=== PATIENT | male | born 1945 | race Caucasian/White ===

== ENCOUNTER → 2017-02-06 | Outpatient (CLI) | payer MEDICARE | END | disposition home or self-care (01) | LOC: PCVCCLINIC 11:23 | PROVIDERS: ATTEND Internal Medicine Cardiovascular Disease | DX: I25.10 Atherosclerotic heart disease of native coronary artery without angina pectoris (principal); E78.5 Hyperlipidemia, unspecified; I73.9 Peripheral vascular disease, unspecified; I10 Essential (primary) hypertension | CPT/HCPCS: 93005; G0463 ==

== ENCOUNTER → 2017-05-14 | Outpatient (CLI) | payer MEDICARE | END | disposition home or self-care (01) | LOC: PCVCCLINIC 14:00 | PROVIDERS: ATTEND Internal Medicine Cardiovascular Disease | DX: I25.110 Atherosclerotic heart disease of native coronary artery with unstable angina pectoris (principal); I10 Essential (primary) hypertension; E78.00 Pure hypercholesterolemia, unspecified; I73.9 Peripheral vascular disease, unspecified; Z95.1 Presence of aortocoronary bypass graft; Z95.5 Presence of coronary angioplasty implant and graft; Z79.82 Long term (current) use of aspirin; Z79.899 Other long term (current) drug therapy; Z87.891 Personal history of nicotine dependence | CPT/HCPCS: 93005; G0463 ==

== ENCOUNTER → 2017-11-15 | Outpatient (CLI) | payer MEDICARE | END | disposition home or self-care (01) | LOC: PCVCCLINIC 11:33 | PROVIDERS: ATTEND Internal Medicine Cardiovascular Disease | DX: I25.10 Atherosclerotic heart disease of native coronary artery without angina pectoris (principal); I10 Essential (primary) hypertension; E78.00 Pure hypercholesterolemia, unspecified; I73.9 Peripheral vascular disease, unspecified; Z88.0 Allergy status to penicillin; Z79.82 Long term (current) use of aspirin; Z79.899 Other long term (current) drug therapy; Z87.891 Personal history of nicotine dependence | CPT/HCPCS: 36415; 93005; G0463 ==

== ENCOUNTER → 2018-05-21 | Outpatient (CLI) | payer MEDICARE | END | disposition home or self-care (01) | LOC: PCVCCLINIC 10:30 | DX: I25.10 Atherosclerotic heart disease of native coronary artery without angina pectoris (principal); I10 Essential (primary) hypertension; E78.00 Pure hypercholesterolemia, unspecified; Z79.82 Long term (current) use of aspirin; Z88.8 Allergy status to other drugs, medicaments and biological substances | CPT/HCPCS: 93005; G0463 ==

== ENCOUNTER → 2018-12-10 | Outpatient (CLI) | payer MEDICARE ==
--- NOTE | 2018-12-10 15:26 | PCVCIMAG ---
APPROVED REPORT Imaging Protocol: Rest Tc-99m/Stress Tc-99m 1 day Study performed: 12/10/2018 08:46:49 Indication: CAD Patient Location: Out-Patient Stress Nurse: Iris Hui RN, Sydney Smiley RN PR Tech:Annette Wellscarolina [facility] Ht: 5 ft 9 in Wt: 178 lbs BSA: 1.97 m2 HR: 93 bpm BP: 060/50 mmHg BMI: 26.28 Rhythm: Normal Sinus Rhythm, ST Abnormality Medical History Medical History: HTN, Hyperlipidemia, CAD Medications: Norvasc, ASA, Atorvastatin, Plavix, Isosorbide, Diovan Allergies: Tape, Sulfa, PCN, Aidan-inhibitors Cardiac Risk Factors: Age Previous Cardiac Procedures: CABG, PCI Pretest Chest Pain Characteristics: No chest pain Exercise History: Physically active Meds Held (24 hrs): Pt held all meds this am Resting Data Rest SPECT myocardial perfusion imaging was performed in supine position 45 minutes following the intravenous injection of 10.3 mCi of Tc-99m Sestamibi. Time of rest injection: 0900 Date: 12/10/2018 Administration Route: IV Administration Site: Right AC Exercise Stress At peak stress, the patient was injected intravenously with 34mCi of Tc-99m Sestamibi. Time of stress injection: 1015 Date: 12/10/2018 Administration Route: IV Administration Site: Right AC Patient continued to exercise for 1 minute(s). Gated Stress SPECT was performed 45 minutes after stress injection. The images were gated to evaluate regional wall motion and calculate left ventricular ejection fraction. Stress Test Details Stress Test: Exercise stress testing was performed using a Kwabena protocol. HRMax Heart Rate (APMHR): 146 bpm Resting HR: 93 bpmTarget HR (85% APMHR): 124 bpm Max HR Achieved: 153 bpm % of APMHR: 104 Recovery HR: 105 bpm BP Resting BP: 192/82 mmHg Max BP: 188/78 mmHg Recovery BP: 157/66 mmHg ECG Resting ECG: Normal Sinus Rhythm, ST Abnormality Stress ECG: Sinus Tachycardia, Marked ST abnormality ST Change: Ischemic Maximum ST Deviation: 2.0 mm Recovery ECG: Sinus Tachycardia, continued marked ST abnormality Clinical Reason for Termination: Dyspnea Stress Symptoms: Dyspnea Exercise duration: 6 min 00 sec Exercise capacity: 7 METs Overall Exercise Capacity for Age: Average Nurse Comments Pt demanded to walk on TM versus medical testing. Pt had ST changes for [address] Mulligan aware. Pt denies any angina while on TM. Pt c/o shoulder discomfort into L wrist 10 minutes post TM. EKG returned to near baseline 15 minutes post exercise. Pt did take all am meds post exercise. Study Quality Study: Good Study Data Post stress, the left ventricular ejection was 63%.. SSS: 15 SRS: 2 SDS: 13 TID = 0.96. Perfusion There is a medium area of moderately reduced uptake in the mid and apical segment of the anteroseptal wall which is seen on the stress images and normalizes on the resting images. This area thickens and moves normally and is most consistent with ischemia. Wall Motion Normal left ventricular wall motion. Nuclear Conclusion ECG Findings: positive for ischemia Clinical Findings: negative for ischemia Nuclear Findings: positive for ischemia Exercise Capacity: normal Left Ventricular Function: normal This study reveals ischemia in the mid to apical anteroseptal wall. There is normal LV systolic function.
== END | disposition home or self-care (01) ==
LOC: PCVCIMAG 08:59
PROVIDERS: ATTEND Internal Medicine Cardiovascular Disease
DX: I25.10 Atherosclerotic heart disease of native coronary artery without angina pectoris (principal); E78.00 Pure hypercholesterolemia, unspecified; I73.9 Peripheral vascular disease, unspecified; I12.9 Hypertensive chronic kidney disease with stage 1 through stage 4 chronic kidney disease, or unspecified chronic kidney disease; N18.9 Chronic kidney disease, unspecified; E78.5 Hyperlipidemia, unspecified; Z79.82 Long term (current) use of aspirin; Z87.891 Personal history of nicotine dependence
CPT/HCPCS: 78452; 93005; 93017; A9500; G0463

== ENCOUNTER → 2019-03-10 | Outpatient (CLI) | payer MEDICARE | END | disposition home or self-care (01) | LOC: PCVCCLINIC 15:32 | PROVIDERS: ATTEND Internal Medicine Cardiovascular Disease | DX: I25.10 Atherosclerotic heart disease of native coronary artery without angina pectoris (principal); I12.9 Hypertensive chronic kidney disease with stage 1 through stage 4 chronic kidney disease, or unspecified chronic kidney disease; N18.9 Chronic kidney disease, unspecified; E78.00 Pure hypercholesterolemia, unspecified; E78.5 Hyperlipidemia, unspecified; Z79.82 Long term (current) use of aspirin; Z87.891 Personal history of nicotine dependence; Z88.8 Allergy status to other drugs, medicaments and biological substances; Z88.0 Allergy status to penicillin | CPT/HCPCS: 93005; G0463 ==

== ENCOUNTER → 2019-09-21 | Outpatient (CLI) | payer MEDICARE | END | disposition home or self-care (01) | LOC: PCVCCLINIC 10:50 | PROVIDERS: ATTEND Internal Medicine Cardiovascular Disease | DX: I25.10 Atherosclerotic heart disease of native coronary artery without angina pectoris (principal); E78.00 Pure hypercholesterolemia, unspecified; I12.9 Hypertensive chronic kidney disease with stage 1 through stage 4 chronic kidney disease, or unspecified chronic kidney disease; N18.9 Chronic kidney disease, unspecified; Z87.891 Personal history of nicotine dependence; Z95.1 Presence of aortocoronary bypass graft | CPT/HCPCS: 36415 ==